=== PATIENT | female | born 1995 | race Two or more races ===

== ENCOUNTER 2017-03-10 13:42 | Emergency (ER) | payer MEDICAID, OTHER ==
[~2017-03-10] VITALS: Ht 162.6 cm; Wt 68.9 kg
[2017-03-10 14:15] VITALS: BP 118/67
== END 2017-03-10 14:49 | disposition home or self-care (01) ==
LOC: ER 13:51
DX: O26.892 Other specified pregnancy related conditions, second trimester (principal); J20.9 Acute bronchitis, unspecified

== ENCOUNTER → 2019-09-06 | Emergency (ER) | payer MEDICAID | END | disposition left against medical advice (07) | LOC: ER 22:12 | DX: R52 Pain, unspecified (principal); Z53.21 Procedure and treatment not carried out due to patient leaving prior to being seen by health care provider ==

== ENCOUNTER 2019-09-14 09:23 | Emergency (ER) | payer MEDICAID ==
[~2019-09-14] VITALS: Ht 160 cm; Wt 71.2 kg
[2019-09-14] MEDS ORDERED: SODIUM CHLORIDE 0.9% 1,000 ML IV ONE (09:53)
[2019-09-14 10:05] LABS: Urine Bacteria NONE SEEN /hpf (None Seen); Urine Blood 2+ /uL (Negative); Urine Specific Gravity 1.003 (1.001-1.035); Urine WBC 2 /hpf (0 - 5)
[2019-09-14 10:20] LABS: Basophils # (auto) 0 10 ^3/uL (0-0.2); Basophils % (auto) 0.5 % (0.0-2.0); Eosinophils # (auto) 0.1 10 ^3/uL (0-0.8); Eosinophils % (auto) 0.8 % (0.0-7.0); Hematocrit 42.4 % (36.0-46.0); Hemoglobin 14.4 g/dL (12.2-16.2); Lymphocytes # (auto) 1.5 10 ^3/uL (0.4-5.4); Lymphocytes % (auto) 18.7 % (10.0-50.0); Mean Corpuscular Hemoglobin 29.9 pg (28.0-32.0); Mean Corpuscular Volume 87.9 fL (80.0-100.0); Monocytes # (auto) 0.5 10 ^3/uL (0-1.3); Neutrophils # (auto) 5.8 10 ^3/uL (1.6-8.6); Nucleated Red Blood Cells % 0.1 %; Platelet Count (auto) 186 10^3/uL (140-450); Red Blood Cells 4.82 10^6/uL (4.0-5.20); Red Cell Distribution Width 14.4 % (11.8-14.3); White Blood Cell 7.8 10^3/uL (4.4-10.8)
[2019-09-14 10:23] LABS: Albumin 3.9 g/dL (3.4-5.0); Calcium 9.6 mg/dL (8.5-10.1); Potassium 3.5 mmol/L (3.5-5.1)
[2019-09-14 10:26] LABS: Bilirubin, Total 0.7 mg/dL (0.2-1.0); Total Protein 8.3 g/dL (6.4-8.2)
[2019-09-14 10:53] LABS: BUN/Creatinine Ratio 12.1
[2019-09-14 12:29] VITALS: BP 97/61
== END 2019-09-14 12:31 | disposition home or self-care (01) ==
LOC: ER 09:23
DX: O20.8 Other hemorrhage in early pregnancy (principal); O23.41 Unspecified infection of urinary tract in pregnancy, first trimester; Z3A.11 11 weeks gestation of pregnancy
CPT/HCPCS: 36415; 76801; 80053; 81001; 84702; 85025; 99284; J7030

== ENCOUNTER 2021-12-08 22:15 | Emergency (ER) | payer MEDICAID ==
[~2021-12-08] VITALS: Ht 157.5 cm; Wt 72.6 kg
[2021-12-08 22:16] VITALS: BP 100/63
[2021-12-09] MEDS ORDERED: IBUPROFEN 600 MG TAB PO ONE (01:15)
== END 2021-12-09 01:57 | disposition home or self-care (01) ==
LOC: ER 22:15
DX: S61.217A Laceration without foreign body of left little finger without damage to nail, initial encounter (principal); W25.XXXA Contact with sharp glass, initial encounter; Y93.89 Activity, other specified; Y92.89 Other specified places as the place of occurrence of the external cause; Y99.8 Other external cause status
CPT/HCPCS: 12001; 73140; 81025